=== PATIENT | female | born 1960 | race Caucasian/White ===

== ENCOUNTER → 2023-12-28 07:13 | Outpatient (REF) | payer BC, SELFPAY | LOC: PAVMRI 07:13 | PROVIDERS: ATTENDING PHYSICIAN Internal Medicine Gastroenterology; FAMILY PHYSICIAN Family Medicine | DX: Z91.89 Other specified personal risk factors, not elsewhere classified (principal) | CPT/HCPCS: 74183; A9575 ==

== ENCOUNTER → 2024-01-06 09:41 | Outpatient (REF) | payer BC, SELFPAY | LOC: HWLAB 09:41 | PROVIDERS: ATTENDING PHYSICIAN Internal Medicine Critical Care Medicine; FAMILY PHYSICIAN Family Medicine | DX: J45.30 Mild persistent asthma, uncomplicated (principal); J44.9 Chronic obstructive pulmonary disease, unspecified; J98.4 Other disorders of lung | CPT/HCPCS: 36415; 71046; 82103; 82104 ==

== ENCOUNTER 2024-04-06 14:48 | Outpatient (RCR) | payer BC, SELFPAY | END 2024-04-06 23:59 | disposition home or self-care (01) | LOC: RPT 14:48 | PROVIDERS: ATTENDING PHYSICIAN Nurse Practitioner Adult Health | DX: N39.3 Stress incontinence (female) (male) (principal); M62.81 Muscle weakness (generalized); L90.5 Scar conditions and fibrosis of skin; Z73.6 Limitation of activities due to disability | CPT/HCPCS: 97110; 97163; 97530 ==

== ENCOUNTER 2024-05-07 07:00 | Outpatient (RCR) | payer BC, SELFPAY | END 2024-05-07 23:59 | disposition home or self-care (01) | LOC: RPT 07:00 | PROVIDERS: ATTENDING PHYSICIAN Nurse Practitioner Adult Health | DX: N39.3 Stress incontinence (female) (male) (principal); M62.81 Muscle weakness (generalized); L90.5 Scar conditions and fibrosis of skin; Z73.6 Limitation of activities due to disability | CPT/HCPCS: 97014; 97110; 97112; 97530 ==

== ENCOUNTER 2024-06-04 06:29 | Outpatient (RCR) | payer BC, SELFPAY | END 2024-06-04 23:59 | disposition home or self-care (01) | LOC: RPT 06:29 | PROVIDERS: ATTENDING PHYSICIAN Nurse Practitioner Adult Health | DX: N39.3 Stress incontinence (female) (male) (principal); M62.81 Muscle weakness (generalized); L90.5 Scar conditions and fibrosis of skin; Z73.6 Limitation of activities due to disability | CPT/HCPCS: 97014; 97110; 97112; 97140; 97530 ==

== ENCOUNTER 2024-06-27 06:28 | Outpatient (RCR) | payer BC, SELFPAY | END 2024-06-27 23:59 | disposition home or self-care (01) | LOC: RPT 06:28 | PROVIDERS: ATTENDING PHYSICIAN Nurse Practitioner Adult Health | DX: N39.3 Stress incontinence (female) (male) (principal); M62.81 Muscle weakness (generalized); L90.5 Scar conditions and fibrosis of skin; Z73.6 Limitation of activities due to disability | CPT/HCPCS: 97014; 97112; 97530 ==

== ENCOUNTER 2024-08-08 06:16 | Outpatient (RCR) | payer BC, SELFPAY | END 2024-08-08 13:47 | disposition home or self-care (01) | LOC: RPT 06:16 | PROVIDERS: ATTENDING PHYSICIAN Nurse Practitioner Adult Health | DX: N39.3 Stress incontinence (female) (male) (principal); M62.81 Muscle weakness (generalized); L90.5 Scar conditions and fibrosis of skin; Z73.6 Limitation of activities due to disability | CPT/HCPCS: 97112; 97530 ==

== ENCOUNTER → 2024-08-08 09:43 | Outpatient (REF) | payer BC, SELFPAY | LOC: HWRAD 09:43 | PROVIDERS: ATTENDING PHYSICIAN Nurse Practitioner Adult Health; REFERRING PHYSICIAN Obstetrics & Gynecology Gynecology | DX: M85.80 Other specified disorders of bone density and structure, unspecified site (principal); Z78.0 Asymptomatic menopausal state | CPT/HCPCS: 77080 ==

== ENCOUNTER → 2024-08-20 07:56 | Outpatient (REF) | payer BC, SELFPAY | LOC: HWRCS 07:56 | PROVIDERS: ATTENDING PHYSICIAN Internal Medicine Cardiovascular Disease; FAMILY PHYSICIAN Nurse Practitioner Adult Health | DX: I10 Essential (primary) hypertension (principal); R06.02 Shortness of breath | CPT/HCPCS: 93306 ==

== ENCOUNTER → 2024-08-22 06:18 | Outpatient (REF) | payer BC, SELFPAY ==
[2024-08-22 09:39] LABS: Urine Albumin Negative (Neg - Trace); Urine Bilirubin Negative (Negative); Urine Character Clear (Clear); Urine Color Yellow; Urine Glucose Negative (Negative); Urine Ketone Negative (Negative); Urine Leukocyte 1+ (Negative); Urine Nitrite Negative (Negative); Urine Occult Blood Negative (Negative); Urine Specific Gravity 1.005 (<1.030); Urine Urobilinogen Negative (Neg - 1+)
[2024-08-22 09:51] LABS: ALT (SGPT) 35 U/L (0-35); AST (SGOT) 24 U/L (14-36); Albumin 4.1 g/dl (3.5-5.0); Alkaline Phosphatase 52 U/L (38-126); Blood Urea Nitrogen 26 mg/dl (7-17); Carbon Dioxide 25 mmol/L (22-30); Chloride 111 mmol/L (98-107); Glucose 98 mg/dl (70-99); Potassium 4.4 mmol/L (3.5-5.1); Sodium 144 mmol/L (135-145); Total Bilirubin 0.5 mg/dl (0.2-1.3); Total Protein 6.8 g/dl (6.3-8.2); eGFR 50.55
[2024-08-22 10:33] LABS: Urine Urothelial Cell 0-2 /LPF (FEW)
[2024-08-22 10:34] LABS: Urine Red Blood Cell 0-2 /HPF (0-2)
[2024-08-22 10:35] LABS: Urine Bacteria Few (Negative)
[2024-08-22 11:37] LABS: Glycohemoglobin (HgbA1c) 5.5 % (4.0-5.6)
[2024-08-22 12:20] LABS: Microalbumin, Random Urine <0.6 mg/dl (0.6-1.7)
== END ==
LOC: HWLAB 06:18
PROVIDERS: ATTENDING PHYSICIAN Nurse Practitioner Adult Health
DX: R73.01 Impaired fasting glucose (principal); R79.89 Other specified abnormal findings of blood chemistry
CPT/HCPCS: 36415; 80053; 81003; 81015; 82043; 82570; 83036

== ENCOUNTER → 2024-08-27 12:53 | Outpatient (REF) | payer BC, SELFPAY | LOC: HWRAD 12:53 | PROVIDERS: ATTENDING PHYSICIAN Nurse Practitioner Adult Health | DX: R79.89 Other specified abnormal findings of blood chemistry (principal) | CPT/HCPCS: 76770 ==

== ENCOUNTER → 2024-11-01 08:15 | Outpatient (REF) | payer BC, SELFPAY ==
[2024-11-01 10:59] LABS: Lithium 0.8 mmol/L (0.6-1.2)
== END ==
LOC: HWLAB 08:15
PROVIDERS: ATTENDING PHYSICIAN Nurse Practitioner Psychiatric/Mental Health; FAMILY PHYSICIAN Nurse Practitioner Adult Health
DX: Z51.81 Encounter for therapeutic drug level monitoring (principal)
CPT/HCPCS: 36415; 80178

== ENCOUNTER → 2024-11-21 07:19 | Outpatient (REF) | payer BC, SELFPAY | LOC: MRI 3T 07:19 | PROVIDERS: ATTENDING PHYSICIAN Internal Medicine Gastroenterology; FAMILY PHYSICIAN Nurse Practitioner Adult Health | DX: Z91.89 Other specified personal risk factors, not elsewhere classified (principal) | CPT/HCPCS: 74183; A9575 ==

== ENCOUNTER → 2024-11-30 14:47 | Outpatient (REF) | payer BC, SELFPAY | LOC: WDC 14:47 | PROVIDERS: ATTENDING PHYSICIAN Otolaryngology; FAMILY PHYSICIAN Nurse Practitioner Adult Health | DX: Z98.82 Breast implant status (principal) | CPT/HCPCS: 76641 ==